=== PATIENT | male | born 1955 | race African-American/Black ===

== ENCOUNTER 2016-09-29 07:30 | Emergency (ER) | payer MEDICAID ==
[~2016-09-29] VITALS: Ht 172.7 cm; Wt 80.0 kg
[2016-09-29 07:33] VITALS: BP 0/0
[2016-09-29] MEDS ORDERED: LIDOCAINE HCL 2% 5ML SYRINGE IV ONE (11:00)
[2016-09-29] MEDS ORDERED: MAGNESIUM SULFATE 4G IN WATER 100ML PREMIX IV ONE (11:00)
[2016-09-29] MEDS ORDERED: CALCIUM CHLORIDE 1GM/10ML SYR IV ONE (11:00)
[2016-09-29] MEDS ORDERED: AMIODARONE HCL 50MG/ML 3ML VIAL IV ONE (11:00)
[2016-09-29] MEDS ORDERED: DOPAMINE 400MG IN DEXT 5% 250ML PREMIX IV ONE (11:00)
[2016-09-29] MEDS ORDERED: EPINEPHRINE 0.1MG/ML (1:10,000) 10ML SYR ONE (11:00)
== END 2016-09-29 10:16 | disposition expired ==
LOC: ER 07:44
DX: I46.9 Cardiac arrest, cause unspecified (principal); I51.9 Heart disease, unspecified; I25.2 Old myocardial infarction
CPT/HCPCS: 31500; 92950; 99285; J0171; J0282; J1265; J3475; J3490